=== PATIENT | male | born 1950 | race Caucasian/White ===

== ENCOUNTER 2020-03-26 07:00 | Day surgery (SDC) | payer OTHER ==
[~2020-03-26 07:00] MED LIST: MEN 50 PLUS MU1 EACH PO; VOLTAREN ARTHRI20 GM TOP
[2020-03-26] MEDS ORDERED: HYDROCODON-ACE1 EA10 PO (08:47)
--- NOTE | 2020-03-26 08:59 | NUR ---
03/26/20 0859 Yu Alvarenga 0818 PT TO PACU SLEEPY NEEDS CHIN THRUST TO KEEP AIRWAY OPEN. O2 VIA MASK.
--- NOTE | 2020-03-26 11:19 | OR ---
[facility] [address], [place] [address] Signed DATE OF OPERATION: 03/26/2020 SURGEON: Arabella Alvarenga MD PREOPERATIVE DIAGNOSIS: Right carpal tunnel syndrome. POSTOPERATIVE DIAGNOSIS: Right carpal tunnel syndrome. PROCEDURE PERFORMED: Right carpal tunnel release. DIRECTOR INDEPENDENT: None. ANESTHESIA: [place] block. TOURNIQUET TIME: 20 minutes. BRIEF HISTORY: Mona is a 69-year-old gentleman with progressive worsening of numbness in both hands. He wished to proceed with carpal tunnel release. Risks and benefits of operative treatment were discussed with him. He elected to proceed. DESCRIPTION OF PROCEDURE: Once consent was obtained, he was taken to the operating room. After adequate anesthesia, he was placed on operating room table, all downside pressure points were well padded. The arm was then prepped and draped in a standard sterile fashion. A 1.5 cm incision was made in the distal wrist crease, carried through skin and subcutaneous tissue. The palmaris longus and what appeared to be a motor branch of the median nerve were then mobilized, retracted and protected. The transverse carpal ligament was then identified under loupe magnification, it was released proximally a cm and distally to the distal extent. This was carefully palpated using a [place] and found to be completely released. Wound was copiously irrigated with antibiotic solution, closed with 3-0 nylon and injected with 7 mL 0.25% plain Marcaine. The wound was then dressed with bacitracin, Adaptic, 4 x 8s, and gauze. He tolerated the procedure well. All sponge, needle, and Electronically Signed By: ARABELLA ALVARENGA MD 03/26/20 1119 PATIENT NAME: MONA BRIGGS OPERATIVE REPORT DATE OF : 52 REPORT #: [id number] PHYSICIAN: ARABELLA ALVARENGA MD PCP: SHUN JONES MD REPORT IS CONFIDENTIAL AND NOT TO BE RELEASED WITHOUT AUTHORIZATION [facility] [address] [place] [facility] [place], [place] [address] Signed instrument counts were correct. Arabella Alvarenga MD BA/MODL /[id number] Copies: ~ Electronically Signed By: ARABELLA ALVARENGA MD 03/26/20 1119 PATIENT NAME: MONA BRIGGS OPERATIVE REPORT DATE OF : 52 REPORT #: [id number] PHYSICIAN: ARABELLA ALVARENGA MD PCP: SHUN JONES MD REPORT IS CONFIDENTIAL AND NOT TO BE RELEASED WITHOUT AUTHORIZATION
== END 2020-03-26 09:40 | disposition home or self-care (01) ==
LOC: OPS 07:00 → DS 07:00 → OPS 08:30
PROVIDERS: ATTEND Specialist
PROC: 01N50ZZ Release Median Nerve, Open Approach (ICD-10-PCS; principal; 2020-03-26 08:30)
DX: G56.01 Carpal tunnel syndrome, right upper limb (principal); M19.90 Unspecified osteoarthritis, unspecified site
CPT/HCPCS: 01810; J0690; J2001; J2704